=== PATIENT | female | born 1985 | race Caucasian/White ===

== ENCOUNTER 2018-09-26 17:11 | Emergency (ER) | payer OTHER ==
[~2018-09-26] VITALS: Ht 162.6 cm; Wt 81.6 kg
[2018-09-26] MEDS ORDERED: ORTHO-CYCLEN 21 EACH (17:25)
== END 2018-09-26 18:29 | disposition home or self-care (01) ==
LOC: ER 17:11
DX: J35.01 Chronic tonsillitis (principal)

== ENCOUNTER → 2020-11-17 | Outpatient (CLI) | payer OTHER ==
[~2020-11-17] MED LIST: ORTHO-CYCLEN 21 EACH
== END | disposition home or self-care (01) ==
LOC: PRENATAL 08:39
PROVIDERS: ATTEND Obstetrics & Gynecology Maternal & Fetal Medicine
DX: Z36.89 Encounter for other specified antenatal screening (principal); O36.80X1 Pregnancy with inconclusive fetal viability, fetus 1; Z3A.14 14 weeks gestation of pregnancy

== ENCOUNTER 2022-07-22 15:57 | Outpatient (CLI) | payer OTHER | END 2022-07-22 17:03 | disposition home or self-care (01) | LOC: PRENATAL 15:57 | PROVIDERS: ATTEND Obstetrics & Gynecology Maternal & Fetal Medicine | DX: O35.9XX0 Maternal care for (suspected) fetal abnormality and damage, unspecified, not applicable or unspecified (principal); O35.3XX0 Maternal care for (suspected) damage to fetus from viral disease in mother, not applicable or unspecified; Z3A.20 20 weeks gestation of pregnancy ==

== ENCOUNTER 2022-11-08 12:41 | Outpatient (CLI) | payer OTHER | END 2022-11-08 14:02 | disposition home or self-care (01) | LOC: PRENATAL 12:41 | PROVIDERS: ATTEND Obstetrics & Gynecology Maternal & Fetal Medicine | DX: O26.849 Uterine size-date discrepancy, unspecified trimester (principal); O36.8199 Decreased fetal movements, unspecified trimester, other fetus; O09.529 Supervision of elderly multigravida, unspecified trimester; Z3A.35 35 weeks gestation of pregnancy ==